=== PATIENT | female | born 1970 | race Caucasian/White ===

== ENCOUNTER 2016-08-17 17:42 | Emergency (ER) | payer MEDICARE, MEDICAID ==
[~2016-08-17 17:42] MED LIST: ABILIFY5 MG PO; ALLEGRA ALLERG180 M1 PO; B COMPLEX1 EAC1 PO; B12 PO; BENZTROPINE MESY1 M1 PO; BENZTROPINE MESY2 M1 PO; BIOTIN; BIOTIN5 M3 PO; BUSPAR15 MG PO; BUSPIRONE HCL7.5 M1 PO; CALCIUM500 M1 PO; COGENTIN PO; COLACE100 M1 PO; COMPAZINE10 M PO; CYCLOBENZAPRINE10 M1 PO; CYCLOBENZAPRINE10 MG PO; CYMBALTA60 M1 PO; DEPAKOTE ER500 M1 PO; DICLOFENAC POTA50 M1 PO; ESTRACE PO; ESTRACE0.5 M2 PO; ESTRACE1 M3 PO; FLEXERIL5 M1 PO; GABAPENTIN100 M1 PO; GABAPENTIN600 M1 PO; GEODON20 M1 PO; GEODON20 MG PO; GEODON40 M1 PO; GEODON60 MG PO; GEODON80 M1 PO; GEODON80 MG PO; GLUCOPHAGE XR500 M1 PO; GLUCOPHAGE500 M3 PO; GLUCOPHAGE500 MG PO; HEALTHY HEART1 EAC1 PO; IRON PO; IRON134 MG PO; IRON18 M1 PO; IRON325 M3 PO; KLOR-CON 1010 ME1 PO; KLOR-CON 1010 MEQ PO; LAMICTAL XR100 M1 PO; LAMICTAL XR200 M1 PO; LAMICTAL XR200 MG PO; LAMICTAL100 M1 PO; LAMICTAL200 M2 PO; LAMICTAL25 M1 PO; LATUDA40 MG PO; LYRICA50 MG PO; MAGNESIUM250 M1 PO; MAGNESIUM250 M2 PO; MAXZIDE 37.5 M1 EAC1 PO; MAXZIDE1 TA2 PO; MONUROL PO; NEOMYCIN-POLYMY10 M5 OT; NEURONTIN100 M1 PO; NEURONTIN300 M1 PO; NORCO 5-325 TA1 EACH PO; NORCO PO; OMEPRAZOLE20 M2 PO; OMEPRAZOLE20 M3 PO; PROTONIX40 M2 PO; REMERON30 MG PO; RESTORIL15 M1 PO; RITALIN LA40 M1 PO; RITALIN PO; RITALIN20 M1 PO; STOOL SOFTNER; TEMAZEPAM15 M1 PO; TEMAZEPAM30 MG PO; TRIAMTERENE-HC1 EAC1 PO; URECHOLINE25 MG PO; VITAMIN B-6100 M1 PO; VITAMIN B1100 MG PO; VITAMIN B12100 MCG PO; VITAMIN B122500 MCG; VITAMIN B122500 MCG PO; VITAMIN B6100 MG PO; VITAMIN B6200 MG PO; VITAMIN D-3400 UNIT PO; ZYRTEC10 M7 PO; ZYRTEC1010 PO
[2016-08-17 21:01] LABS: URINE BILIRUBIN NEGATIVE (NEG); URINE BLOOD LARGE (NEG); URINE GLUCOSE (UA) NEGATIVE (NEG); URINE KETONE NEGATIVE (NEG); URINE LEUKOCYTE ESTERASE POSITIVE (NEG); URINE NITRITE NEGATIVE (NEG); URINE PROTEIN MODERATE (NEG); URINE SPECIFIC GRAVITY 1.015 (1.003-1.030)
[2016-08-17 21:02] LABS: URINE APPEARANCE HAZY; URINE COLOR YELLOW
[2016-08-17 21:12] LABS: URINE WBC 20-30 /[HPF] (0-5)
[2016-08-17 21:13] LABS: URINE AMORPHOUS 1+; URINE BACTERIA 2+; URINE MUCUS 1+
[2016-10-26] MEDS ORDERED: OMEPRAZOLE20 M4 PO (08:08)
[2016-10-26] MEDS ORDERED: ULTRAM50 M1 PO (10:31)
[2016-10-26] MEDS ORDERED: BUSPIRONE HCL15 M2 PO (10:31)
[2016-11-05] MEDS ORDERED: BUSPIRONE HCL30 M1 PO (14:43)
[2016-11-05] MEDS ORDERED: DIVALPROEX SOD500 M5 PO (14:44)
[2016-11-05] MEDS ORDERED: CRANBERRY PO (15:07)
[2016-11-05] MEDS ORDERED: TOPROL XL25 M1 PO (15:24)
[2016-11-10] MEDS ORDERED: METOPROLOL TART25 M1 PO (06:03)
[2016-11-10] MEDS ORDERED: MELATONIN3 M4 PO (06:13)
[2016-11-16] MEDS ORDERED: BUSPIRONE HCL15 M2 PO (07:09)
== END 2016-08-17 22:00 ==
LOC: EDMED 17:42
PROVIDERS: Emergency Medicine
DX: N39.0 Urinary tract infection, site not specified (principal)